=== PATIENT | male | born 1995 | race Caucasian/White ===

== ENCOUNTER 2016-08-25 10:10 | Emergency (ER) | payer OTHER ==
[2016-08-25 10:22] VITALS: TEMP 97.5
[2016-08-25] MEDS ORDERED: ONDANSETRON 4 MG/2 ML VIAL ONE (10:35)
[2016-08-25] MEDS ORDERED: fentaNYL 100 MCG/2 ML INJ ONE (10:35)
[2016-08-25] MEDS ORDERED: fentaNYL 100 MCG/2 ML INJ IVP ONE (10:35)
[2016-08-25] MEDS ORDERED: ONDANSETRON 4 MG/2 ML VIAL IVP ONE (10:35)
--- NOTE | 2016-08-25 10:35 | EDPHY ---
H & P Time Seen by Provider: 08/25/16 10:25 HPI/ROS: Chief complaint. Possible dislocated patella HPI. 21-year-old male was doing some stretches and had his left leg up on a door knob and his right foot was on a wet floor that had recently been washed apparently. The right foot slipped and he fell and sustained injury to his left knee. Denies any other injuries. No previous knee problems. Hurts to walk and he feels the patella is off to the side ROS Constitutional. no fever/chills, no weakness Eyes. no problems with vision ENT. no sore throat, no nasal drainage Cardiovascular. no chest pain Respiratory. no shortness of breath, no cough Abdominal. no abdominal pain, no nausea/vomiting, no diarrhea . no problems urinating MS. Left knee pain Skin. no rash Lymph. no swollen glands Neuro. no headache, no dizziness, no difficulty walking or with speech Past Medical/Surgical History: Healthy Social History: Single, nonsmoker, no alcohol Smoking Status: Never smoked Physical Exam: General Appearance: Alert well-developed male mild distress vital signs are stable Eyes: Pupils equal and round no pallor or injection. ENT, Mouth: Mucous membranes are moist. Respiratory: There are no retractions, lungs are clear to auscultation. Cardiovascular: Regular rate and rhythm. Gastrointestinal: Abdomen is soft and nontender, no masses, bowel sounds normal. Neurological: Awake and alert, sensory and motor exams grossly normal. Skin: Warm and dry, no rashes. Musculoskeletal: Left knee with obvious left patella dislocation dislocated laterally. No obvious effusion. Distal motor vascular sensitivity is intact Extremities symmetrical, full range of motion. Psychiatric: Patient is oriented X 3, there is no agitation. Constitutional: Initial Vital Signs Temperature (C) 36.4 C 08/25/16 10:10 Heart Rate 100 08/25/16 10:10 Respiratory Rate 18 08/25/16 10:10 Blood Pressure 139/106 H 08/25/16 10:10 O2 Sat (%) 98 08/25/16 10:10 O2 Delivery Mode Room Air Allergies/Adverse Reactions: No Known Allergies Allergy (Verified 08/25/16 10:20) Home Medications: Medication Instructions Recorded Miscellaneous Medical Supply [NO 1 ea MISC AD 11/15/12 HOME MEDS] oxyCODONE/APAP 5/325 [Percocet 1 tab PO Q4-6PRN PRN #14 tab 08/25/16 5/325] Medical Decision Making Procedures: IV fentanyl and Zofran Procedure patella relocation--after good analgesia the leg is placed in an extended position and the patella is currently relocated. Patient tolerates the procedure well. The patella was relocated without difficulty however it immediately spontaneously dislocated again. I relocated it and it has remained reduced Bridger bandage and knee immobilizer placed. Post knee immobilizer placement evaluated by me and shows good anatomic position and distal motor vascular sensitivity to be intact ED Course/Re-evaluation: Re-evaluation 03/1930. The patella is normally placed. The patient and his parents and I discussed imaging study results, treatment plan, criteria for return and importance of follow-up further evaluation. They expressed understanding and agreement Differential Diagnosis: I considered fracture. Clinically the patient clearly had a patellar dislocation. There was some laxity and that it spontaneously dislocated again immediately after relocation. However no fracture and no obvious knee joint pathology - Data Points Medications Given: Discontinued Medications Fentanyl (Sublimaze) 200 mcg IVP EDNOW ONE Stop: 08/25/16 10:36 Last Admin: 08/25/16 10:35 Dose: 200 mcg Ondansetron HCl (Zofran) 4 mg IVP EDNOW ONE Stop: 08/25/16 10:36 Last Admin: 08/25/16 10:35 Dose: 4 mg Departure - Departure Disposition: Home, Routine, Self-Care Clinical Impression: Patellar dislocation Qualifiers: Encounter type: initial encounter Laterality: left Qualified Code(s): S83.005A - Unspecified dislocation of left patella, initial encounter Condition: Good Instructions: Patellar Dislocation (ED) Additional Instructions: Bridger bandage on for 2 days. When in the hot tub consider using a neoprene sleeve for protection. Ice and elevation today. Crutches if needed. Ibuprofen 600 mg every 6 hours. Percocet if needed for pain. Knee immobilizer on for 1 week and before discontinuing this please be re-evaluated by orthopedist Referrals: Nicholas Guallpa DO [Primary Care Provider] - As per Instructions Amadeo Powell MD [Medical Doctor] - 5-7 days, call for appt. Prescriptions: oxyCODONE/APAP 325 [Percocet 325] 1 tab PO Q4-6PRN PRN #14 tab PRN Reason: Pain, Moderate
[2016-08-25 11:54] VITALS: BP 141/83; PULSE 97; RESP 15; O2SAT 96
== END 2016-08-25 11:54 | disposition home or self-care (01) ==
PROC: 0QSFXZZ Reposition Left Patella, External Approach (ICD-10-PCS; principal; 2016-08-25)
DX: S83.005A Unspecified dislocation of left patella, initial encounter (principal); W01.0XXA Fall on same level from slipping, tripping and stumbling without subsequent striking against object, initial encounter
CPT/HCPCS: 96374; J2405; J3010; L1830

== ENCOUNTER → 2016-09-09 | Outpatient (CLI) | payer OTHER | LOC: FIMAGING 18:43 | PROVIDERS: ATTEND Orthopaedic Surgery Sports Medicine | DX: S83.005A Unspecified dislocation of left patella, initial encounter (principal); S83.512A Sprain of anterior cruciate ligament of left knee, initial encounter; S83.412A Sprain of medial collateral ligament of left knee, initial encounter; X58.XXXA Exposure to other specified factors, initial encounter ==